=== PATIENT | female | born 1995 | race Two or more races ===

== ENCOUNTER 2021-01-24 14:42 | Emergency (ER) | payer MEDICAID ==
[~2021-01-24] VITALS: Ht 160 cm; Wt 69.9 kg
--- NOTE | 2021-01-24 15:33 | NUR ---
pharmacist critical care: pt from lobby to room 12
[2021-01-24] MEDS ORDERED: AZITHROMYCIN 500 MG TABLET ONE (15:50)
[2021-01-24] MEDS ORDERED: CEFTRIAXONE 1,000 MG ONE (15:50)
[2021-01-24] MEDS ORDERED: CEFTRIAXONE 1,000 MG IM ONE (16:00)
[2021-01-24] MEDS ORDERED: AZITHROMYCIN 500 MG TABLET PO ONE (16:00)
--- NOTE | 2021-01-24 16:05 | NUR ---
PT MEDICATED PER EMAR
--- NOTE | 2021-01-24 16:24 | NUR ---
NO S/S OF ABX RXN NOTED. DC EDUCATION PROVIDED, PT DEMONSTRATES UNDERSTANDING. PT AMBULATED STEADILY TO DC WITH RN AND FAMILY.
[2021-01-24 16:25] VITALS: BP 115/80
== END 2021-01-24 16:27 | disposition home or self-care (01) ==
LOC: ED 16:20
DX: A56.8 Sexually transmitted chlamydial infection of other sites (principal)
CPT/HCPCS: 96372; 99283; J0696

== ENCOUNTER 2021-04-22 10:35 | Emergency (ER) | payer MEDICAID ==
[~2021-04-22] VITALS: Ht 160 cm; Wt 64.9 kg
[2021-04-22 12:18] LABS: BASOPHILS % (AUTO) 1 % (0-1); EOSINOPHILS % (AUTO) 1 % (1-7); LYMPHOCYTES % (AUTO) 24 % (22-44); MEAN CORPUSCULAR HEMOGLOBIN 27.5 pg (27.0-34.8); MONOCYTES % (AUTO) 6 % (2-9); NEUTROPHILS % (AUTO) 68 % (42-75); PLATELET COUNT 200 x10^3/uL (130-400); RED CELL DISTRIBUTION WIDTH 17.8 % (9.6-15.2)
[2021-04-22 12:30] LABS: ALANINE AMINOTRANSFERASE 20 U/L (12-78); ALBUMIN 3.5 g/dL (3.4-5.0); ANION GAP 4 mmol/L (5-15); CALCIUM 8.5 mg/dL (8.5-10.1); CHLORIDE 107 mmol/L (98-107); CREATININE 0.57 mg/dL (0.55-1.02)
[2021-04-22 12:36] VITALS: BP 110/62
[2021-04-22 12:38] LABS: ALKALINE PHOSPHATASE 84 U/L (45-117); BILIRUBIN,TOTAL 0.4 mg/dL (0.2-1.0); TOTAL PROTEIN 7.2 g/dL (6.4-8.2); TROPONIN I < 0.015 ng/mL (0.000-0.045)
--- NOTE | 2021-04-22 12:41 | NUR ---
ALL RESULTS ARE BACK AT THIS TIME. CHART UP FOR RECHECK.
== END 2021-04-22 14:21 | disposition home or self-care (01) ==
LOC: ED 12:33
DX: R07.89 Other chest pain (principal); R94.31 Abnormal electrocardiogram [ECG] [EKG]
CPT/HCPCS: 36415; 71045; 80053; 84484; 84703; 85025; 93005; 99285

== ENCOUNTER 2021-06-23 13:38 | Emergency (ER) | payer MEDICAID ==
[~2021-06-23] VITALS: Ht 160 cm; Wt 65.2 kg
[2021-06-23 13:41] VITALS: BP 111/53
[2021-06-23 14:13] LABS: MICROSCOPIC AUTO
[2021-06-23 16:58] LABS: BASOPHILS % (AUTO) 1 % (0-1); EOSINOPHILS % (AUTO) 4 % (1-7); LYMPHOCYTES % (AUTO) 19 % (22-44); MEAN CORPUSCULAR HGB CONC 32.8 g/dL (32.4-35.8); MEAN PLATELET VOLUME 8.8 fL (7.4-10.4); MONOCYTES % (AUTO) 5 % (2-9); NEUTROPHILS % (AUTO) 72 % (42-75); PLATELET COUNT 230 x10^3/uL (130-400); RED BLOOD COUNT 4.55 x10^6/uL (3.82-5.3); RED CELL DISTRIBUTION WIDTH 16.6 % (9.6-15.2)
--- NOTE | 2021-06-23 16:59 | NUR ---
hose handler: Pt ambulatory to room from lobby at this time.
[2021-06-23 17:08] LABS: ALBUMIN 3.4 g/dL (3.4-5.0); ANION GAP 7 mmol/L (5-15); CALCIUM 8.8 mg/dL (8.5-10.1); CHLORIDE 104 mmol/L (98-107)
[2021-06-23 17:14] LABS: ALANINE AMINOTRANSFERASE 17 U/L (12-78); ALKALINE PHOSPHATASE 107 U/L (45-117); BILIRUBIN,TOTAL 0.3 mg/dL (0.2-1.0); CREATININE 0.56 mg/dL (0.55-1.02); TOTAL PROTEIN 7.9 g/dL (6.4-8.2)
--- NOTE | 2021-06-23 17:17 | NUR ---
Mother here with 3 little children, mom wanted me to watch children as she goes to the bathroom. Informed mother that she will have to bring them with her. Pelvic set up complete.
--- NOTE | 2021-06-23 18:56 | NUR ---
report from Ashley PACHECO
[2021-06-23] MEDS ORDERED: CEFTRIAXONE 1,000 MG IM ONE (19:30)
[2021-06-23 20:02] LABS: CLUE CELLS NONE SEEN (NONE SEEN)
[2021-06-23 20:08] LABS: WET PREP WBCS MANY (FEW)
[2021-06-23] MEDS ORDERED: CEFTRIAXONE 1,000 MG ONE (20:23)
[2021-06-23] MEDS ORDERED: AZITHROMYCIN 250 MG TABLET ONE (20:29)
[2021-06-23] MEDS ORDERED: AZITHROMYCIN 500 MG TABLET PO ONE (20:30)
== END 2021-06-23 20:45 | disposition home or self-care (01) ==
LOC: ED 19:21
DX: O46.91 Antepartum hemorrhage, unspecified, first trimester (principal); A56.8 Sexually transmitted chlamydial infection of other sites; A54.9 Gonococcal infection, unspecified; R30.0 Dysuria; R50.9 Fever, unspecified; Z3A.01 Less than 8 weeks gestation of pregnancy
CPT/HCPCS: 36415; 80053; 81001; 84702; 84703; 85025; 87086; 87210; 87491; 87591; 87808; 96372; 99283; J0696; 87147

== ENCOUNTER 2021-06-27 11:54 | Emergency (ER) | payer MEDICAID ==
[~2021-06-27] VITALS: Ht 160 cm; Wt 64.2 kg
[2021-06-27 13:51] LABS: MICROSCOPIC NOT IND
--- NOTE | 2021-06-27 15:29 | NUR ---
PT WALKED BACK TO ROOM AT THIS TIME
[2021-06-27] MEDS ORDERED: FLUCONAZOLE 50 MG TABLET PO ONE (16:00)
[2021-06-27] MEDS ORDERED: FLUCONAZOLE 100 MG TABLET ONE (16:09)
[2021-06-27 16:19] VITALS: BP 114/41
== END 2021-06-27 16:58 | disposition home or self-care (01) ==
LOC: ED 16:50
DX: B37.3 Candidiasis of vulva and vagina (principal)
CPT/HCPCS: 81003; 87491; 87591; 99283